=== PATIENT | female | born 1970 | race Caucasian/White ===

== ENCOUNTER 2016-03-21 11:14 | Day surgery (SDC) | payer OTHER ==
[~2016-03-21] VITALS: Ht 160 cm; Wt 91.0 kg
[2016-03-21] MEDS ORDERED: MYCO250 PO (12:10)
[2016-03-21] MEDS ORDERED: EVEN1000 PO (12:10)
[2016-03-21] MEDS ORDERED: CO Q100C9 PO (12:10)
[2016-03-21] MEDS ORDERED: FISH1000 PO (12:10)
[2016-03-21] MEDS ORDERED: ATOR10TA15 PO (12:10)
[2016-03-21] MEDS ORDERED: NUTR1TAB PO (12:10)
[2016-03-21] MEDS ORDERED: CREON24 PO (12:10)
[2016-03-21] MEDS ORDERED: FLUT1SPR22 NASAL (12:10)
[2016-03-21] MEDS ORDERED: ASCO500C PO (12:10)
[2016-03-21] MEDS ORDERED: PAXI20TA PO (12:10)
[2016-03-21] MEDS ORDERED: RANI150C PO (12:10)
[2016-03-21] MEDS ORDERED: HYDR200T3 PO (12:10)
[2016-03-21 13:12] LABS: AUTOMATED NEUTROPHIL # 2.8 TH/MM3 (1.8-7.7); BASOPHIL # 0.1 TH/MM3 (0-0.2); BASOPHIL % 0.9 % (0.0-2.0); EOSINOPHIL # 0.1 TH/MM3 (0-0.4); HEMATOCRIT 38.4 % (35.0-46.0); HEMO FLAGS DIFF FINAL; LYMPH % 44.4 % (9.0-44.0); LYMPHOCYTE # 2.9 TH/MM3 (1.0-4.8); MEAN CELL VOLUME 90.5 FL (80.0-100.0); MEAN CORPUSCULAR HEMOGLOBIN 30.2 PG (27.0-34.0); MEAN CORPUSCULAR HGB CONC 33.3 % (32.0-36.0); MONO % 9.9 % (0.0-8.0); NEUT % 42.8 % (16.0-70.0); PLATELET COUNT 281 TH/MM3 (150-450); RED BLOOD COUNT 4.25 MIL/MM3 (4.00-5.30); RED CELL DISTRIBUTION WIDTH 13.7 % (11.6-17.2); WHITE BLOOD COUNT 6.5 TH/MM3 (4.0-11.0)
[2016-03-21 13:21] LABS: INTERNATIONAL NORMALIZED RATIO 0.9 RATIO
[2016-03-21 13:27] LABS: ANION GAP 7 MEQ/L (5-15); BICARBONATE 25.8 MEQ/L (21.0-32.0); BLOOD UREA NITROGEN 14 MG/DL (7-18); CHLORIDE 103 MEQ/L (98-107); GLOMERULAR FILTRATION RATE 62 ML/MIN (>89); POTASSIUM 3.8 MEQ/L (3.5-5.1); SODIUM (NA) 136 MEQ/L (136-145)
[2016-03-21 13:32] LABS: BETA HCG QUANT LESS THAN 1 MIU/ML (0-5)
[2016-03-21] MEDS ORDERED: HEPARIN-NS/PF INJ 500 ML ONE (15:00)
[2016-03-21] MEDS ORDERED: NITROGLYCERIN INJ 5 ML ONE (15:02)
[2016-03-21] MEDS ORDERED: MIDAZOLAM HCL 2 MG/2 ML VIAL ONE ×3 (15:02→15:41)
[2016-03-21] MEDS ORDERED: HEPARIN SODIUM - IV 10,000 UNITS/10 ML VIAL ONE (15:02)
[2016-03-21] MEDS ORDERED: IOHEXOL 350 MG/ML 50 ML BTL (for Cath Lab) OTHER ONE (15:35)
[2016-03-21] MEDS ORDERED: BACITRACIN OINT 0.9 GM PKT TOP ONE (16:15)
[2016-03-21] MEDS ORDERED: oxyCODONE/ACETAMINOPHEN 5 MG/325 MG TAB PO PRN ×2 (16:15)
[2016-03-21] MEDS ORDERED: ONDANSETRON HCL 4 MG/2 ML VIAL IVP PRN (16:15)
[2016-03-21] MEDS ORDERED: MISC INFORMATION XX ONE (16:15)
--- NOTE | 2016-03-21 19:12 | MA ---
cc: VICNENT ELLINGTON DATE: 03/21/2016 INDICATION Unstable angina. PROCEDURE PERFORMED 1. Fluoroscopy with interpretation. 2. Coronary angiography. METHOD Risks, benefits and alternatives were discussed with the patient. The patient understood and consented to the procedure. Patient brought to the Catheterization Lab and placed on the catheterization table. The right wrist was prepped and draped in a sterile fashion. The right wrist was anesthetized with 2% lidocaine. The right radial artery was cannulated and a 6-Palest[place], 7-cm sheath was placed without difficulty. 200 mcg of intraarterial nitroglycerin was administgered, 3000 units of intravenous heparin was administered. CORONARY ANGIOGRAPHY 1. The left main coronary is angiographically normal. 2. The left anterior descending coronary gives rise to a large diagonal branch angiographically normal. 3. The left circumflex gives rise to an obtuse marginal branch angiographically normal. 4. The right coronary is angiographically normal, dominant vessel. CONCLUSION Angiographically normal coronary arteries. PLAN Despite suggestive symptoms, she has no significant obstructive coronary disease. Advised her to start a proton pump inhibitor in addition to followup with her primary care physician. We will remove HemoBand. Anticipate discharge later today. MD CHRISTINE Watson/KATHLEEN /4:10 PM /6:51 PM
== END 2016-03-21 19:15 | disposition home or self-care (01) ==
LOC: HDOC 11:14 → HDIC 11:16 → HDOC 19:15
PROVIDERS: ATTEND Internal Medicine
DX: I20.0 Unstable angina (principal); I10 Essential (primary) hypertension; I47.1 Supraventricular tachycardia; M32.9 Systemic lupus erythematosus, unspecified; E78.5 Hyperlipidemia, unspecified; K21.9 Gastro-esophageal reflux disease without esophagitis; K86.1 Other chronic pancreatitis; K86.81 Exocrine pancreatic insufficiency; J40 Bronchitis, not specified as acute or chronic; D63.8 Anemia in other chronic diseases classified elsewhere; K20.9 Esophagitis, unspecified; Z86.2 Personal history of diseases of the blood and blood-forming organs and certain disorders involving the immune mechanism; Z01.818 Encounter for other preprocedural examination
CPT/HCPCS: 80048; 84702; 85025; 85610; 86850; 86900; 86901; 93454; C1769; C1893; J1644; J2250; J3010; Q9967